=== PATIENT | male | born 2000 | race Hispanic/Latino ===

== ENCOUNTER 2022-08-10 07:27 | Outpatient (CLI) | payer BC | END 2022-08-10 07:28 | disposition home or self-care (01) | LOC: CSHCT 07:27 | PROVIDERS: ATTEND Otolaryngology Plastic Surgery within the Head & Neck | DX: H71.93 Unspecified cholesteatoma, bilateral (principal); Z98.890 Other specified postprocedural states | CPT/HCPCS: 70480 ==